=== PATIENT | male | born 1995 | race Caucasian/White ===

== ENCOUNTER 2016-08-08 08:43 | Emergency (ER) | payer OTHER ==
[~2016-08-08] VITALS: Ht 180.3 cm; Wt 68.2 kg
[~2016-08-08 08:43] MED LIST: BUSP10TA23 PO
[2016-08-08] MEDS ORDERED: LOPERAMIDE HCL 2 MG CAPSULE PO ONE (09:15)
[2016-08-08] MEDS ORDERED: KETOROLAC TROMETHAMINE 30 MG/ML VIAL IVP ONE (09:15)
[2016-08-08] MEDS ORDERED: BARIUM SULFATE 0.1% SUSPENSION 450 ML BOTTLE PO ONE (09:15)
[2016-08-08] MEDS ORDERED: SODIUM CHLORIDE 0.9% 1,000 ML IV ONE (09:15)
[2016-08-08] MEDS ORDERED: ONDANSETRON HCL 4 MG TABLET PO ONE (09:15)
[2016-08-08] MEDS ORDERED: SODIUM CHLORIDE 0.9% 100 ML ONE (09:30)
[2016-08-08] MEDS ORDERED: IOVERSOL 350 MG/ML 100 ML VIAL ONE (09:30)
[2016-08-08] MEDS ORDERED: ONDANSETRON HCL 4 MG/2 ML VIAL IVP ONE (09:30)
[2016-08-08 09:43] LABS: BASOPHILS % (AUTO) 0.2 % (0.0-2.0); EOSINOPHILS % (AUTO) 0.7 % (1.0-6.0); HEMATOCRIT 46.1 % (41-53); HEMOGLOBIN 15.1 g/dL (13.5-17.5); LYMPHOCYTES # (AUTO) 0.7 K/uL (1.0-4.8); LYMPHOCYTES % (AUTO) 8.5 % (22.0-44.0); MEAN CORPUSCULAR HEMOGLOBIN 29.6 pg (26.0-34.0); MEAN CORPUSCULAR HGB CONC 32.9 G/dL (31.0-37.0); MEAN CORPUSCULAR VOLUME 90 fL (80-100); MONOCYTES # (AUTO) 0.4 K/uL (0.1-1.0); MONOCYTES % (AUTO) 4.6 % (2.0-9.0); NEUTROPHILS # (AUTO) 7.4 K/uL (1.8-7.7); PLATELET COUNT (AUTO) 245 K/uL (150-450); RED BLOOD CELL COUNT(AUTO) 5.11 MIL/uL (4.50-5.90); RED CELL DISTRIBUTION WIDTH 12.8 % (11.5-14.5); WHITE BLOOD COUNT (AUTO) 8.6 K/uL (4.5-11.0)
[2016-08-08 09:50] LABS: RBC MORPHOLOGY COMMENT NORMAL RBC MORPH
[2016-08-08 09:55] LABS: ANION GAP 13 mmol/L (8-16); CALCIUM, TOTAL 9.4 mg/dL (8.8-10.5); CARBON DIOXIDE 25 mmol/L (22-29); CHLORIDE 101 mmol/L (98-107); CREATININE 0.95 mg/dL (0.60-1.30); GLOMERULAR FILTR. RATE CALC > 60 mL/min (>60); POTASSIUM 3.6 mmol/L (3.5-5.1); SODIUM SERUM 139 mmol/L (136-145); UREA NITROGEN, BLOOD 16 mg/dL (7-18)
[2016-08-08 10:01] LABS: ALANINE AMINOTRANSFERASE 33 U/L (12-78); ALBUMIN 4.6 g/dL (3.4-5.0); ASPARTATE AMINOTRANSFERASE 27 U/L (15-37); BILIRUBIN,TOTAL 1.4 mg/dL (0.1-1.0); TOTAL PROTEIN, SERUM 8.3 g/dL (6.4-8.2)
[2016-08-08 10:04] LABS: APPEARANCE,URINE CLEAR (CLEAR); GLUCOSE, URINE (UA) NEGATIVE (NEGATIVE); KETONES,URINE >=80 mg/dL (NEGATIVE); LEUKOCYTE ESTERASE ,URINE NEGATIVE (NEGATIVE); OCCULT BLOOD,URINE NEGATIVE (NEGATIVE); PH,URINE 5.5 (5.0-8.0); PROTEIN,URINE TRACE (NEGATIVE)
[2016-08-08 10:06] LABS: ADD UA MICROSCOPIC NO
[2016-08-08 11:42] VITALS: BP 108/59
== END 2016-08-08 13:06 | disposition home or self-care (01) ==
LOC: EMS 08:45
DX: E86.0 Dehydration (principal); F17.210 Nicotine dependence, cigarettes, uncomplicated; F12.90 Cannabis use, unspecified, uncomplicated
CPT/HCPCS: 36415; 74177; 80053; 81003; 83690; 85025; 96361; 96374; 96375; 99285; J1885; J2405; J7030; J7050; Q0162; Q9967; Z7610

== ENCOUNTER 2018-11-13 13:28 | Emergency (ER) | payer OTHER ==
[~2018-11-13] VITALS: Ht 180.3 cm; Wt 81.8 kg
[2018-11-13] MEDS ORDERED: LOPERAMIDE HCL 2 MG CAPSULE PO ONE (14:15)
[2018-11-13] MEDS ORDERED: SODIUM CHLORIDE 0.9% 1,000 ML IV ONE (14:15)
[2018-11-13 15:51] LABS: ANION GAP 8 mmol/L (8-16); CALCIUM, TOTAL 9.8 mg/dL (8.8-10.5); CARBON DIOXIDE 27 mmol/L (22-29); CHLORIDE 103 mmol/L (98-107); CREATININE 0.95 mg/dL (0.60-1.30); GLOMERULAR FILTR. RATE CALC > 60 mL/min (>60); GLUCOSE,RANDOM 85 mg/dL (70-110); POTASSIUM 4.2 mmol/L (3.5-5.1); SODIUM SERUM 138 mmol/L (136-145); UREA NITROGEN, BLOOD 18 mg/dL (7-18)
[2018-11-13 15:57] LABS: ALANINE AMINOTRANSFERASE 66 U/L (12-78); ALBUMIN 4.4 g/dL (3.4-5.0); ALKALINE PHOSPHATASE 82 U/L (46-116); ASPARTATE AMINOTRANSFERASE 50 U/L (15-37); BILIRUBIN,TOTAL 0.5 mg/dL (0.1-1.0); LIPASE 101 U/L (73-393); TOTAL PROTEIN, SERUM 8.3 g/dL (6.4-8.2)
[2018-11-13 15:59] LABS: HEMATOCRIT 43.5 % (41-53); HEMOGLOBIN 14.4 g/dL (13.5-17.5); MEAN CORPUSCULAR HEMOGLOBIN 29.6 pg (26.0-34.0); MEAN CORPUSCULAR HGB CONC 33.2 G/dL (31.0-37.0); MEAN CORPUSCULAR VOLUME 89 fL (80-100); PLATELET COUNT (AUTO) 276 K/uL (150-450); RED BLOOD CELL COUNT(AUTO) 4.88 MIL/uL (4.50-5.90); RED CELL DISTRIBUTION WIDTH 13.3 % (11.5-14.5)
[2018-11-13 16:40] LABS: BAND NEUTROPHILS % (MANUAL) 11 % (0-5); LYMPHOCYTES % (MANUAL) 13 % (22-44); MONOCYTES % (MANUAL) 8 % (2-9); SEGMENTED NEUTROPHILS % 68 % (40-70)
[2018-11-13 17:08] VITALS: BP 108/52
== END 2018-11-13 17:12 | disposition home or self-care (01) ==
LOC: EDUNIT# 13:28 → EMS 13:32
DX: R19.7 Diarrhea, unspecified (principal); R10.84 Generalized abdominal pain; F41.9 Anxiety disorder, unspecified
CPT/HCPCS: 36415; 80053; 83690; 85025; 96360; 96361; 99283; J7030

== ENCOUNTER 2019-11-30 21:12 | Emergency (ER) | payer OTHER ==
[~2019-11-30] VITALS: Ht 180.3 cm; Wt 86.4 kg
[2019-11-30 23:09] LABS: BASOPHILS % (AUTO) 0.9 % (0.0-2.0); EOSINOPHILS % (AUTO) 0.6 % (1.0-6.0); HEMATOCRIT 41.9 % (41-53); HEMOGLOBIN 14.3 g/dL (13.5-17.5); LYMPHOCYTES # (AUTO) 2.1 K/uL (1.0-4.8); LYMPHOCYTES % (AUTO) 33.1 % (22.0-44.0); MEAN CORPUSCULAR HGB CONC 34.2 G/dL (31.0-37.0); MEAN CORPUSCULAR VOLUME 88 fL (80-100); MONOCYTES # (AUTO) 0.5 K/uL (0.1-1.0); MONOCYTES % (AUTO) 7.7 % (2.0-9.0); NEUTROPHILS # (AUTO) 3.6 K/uL (1.8-7.7); NEUTROPHILS % (AUTO) 57.7 % (40.0-70.0); PLATELET COUNT (AUTO) 274 K/uL (150-450); RED BLOOD CELL COUNT(AUTO) 4.77 MIL/uL (4.50-5.90); RED CELL DISTRIBUTION WIDTH 12.9 % (11.5-14.5)
[2019-11-30 23:11] LABS: APPEARANCE,URINE CLEAR (CLEAR); BILIRUBIN,URINE NEGATIVE (NEGATIVE); GLUCOSE, URINE (UA) NEGATIVE (NEGATIVE); KETONES,URINE NEGATIVE (NEGATIVE); LEUKOCYTE ESTERASE ,URINE NEGATIVE (NEGATIVE); NITRATE,URINE NEGATIVE (NEGATIVE); OCCULT BLOOD,URINE NEGATIVE (NEGATIVE); PH,URINE 6.5 (5.0-8.0); PROTEIN,URINE NEGATIVE (NEGATIVE)
[2019-11-30 23:20] VITALS: BP 116/64
[2019-11-30 23:30] LABS: ALANINE AMINOTRANSFERASE 138 U/L (12-78); ALBUMIN 4.4 g/dL (3.4-5.0); ALKALINE PHOSPHATASE 53 U/L (46-116); ANION GAP 8 mmol/L (8-16); ASPARTATE AMINOTRANSFERASE 48 U/L (15-37); BILIRUBIN,TOTAL 0.8 mg/dL (0.1-1.0); CALCIUM, TOTAL 9.5 mg/dL (8.8-10.5); CARBON DIOXIDE 28 mmol/L (22-29); CHLORIDE 101 mmol/L (98-107); CREATININE 1.04 mg/dL (0.60-1.30); GLOMERULAR FILTR. RATE CALC > 60 mL/min (>60); GLUCOSE,RANDOM 93 mg/dL (70-110); LIPASE 82 U/L (73-393); POTASSIUM 3.6 mmol/L (3.5-5.1); SODIUM SERUM 137 mmol/L (136-145); TOTAL PROTEIN, SERUM 7.9 g/dL (6.4-8.2); UREA NITROGEN, BLOOD 15 mg/dL (7-18)
== END 2019-12-01 00:11 | disposition home or self-care (01) ==
LOC: EMS 21:12
DX: K92.2 Gastrointestinal hemorrhage, unspecified (principal); F41.9 Anxiety disorder, unspecified; F12.90 Cannabis use, unspecified, uncomplicated
CPT/HCPCS: 82271

== ENCOUNTER 2020-02-16 00:39 | Emergency (ER) | payer OTHER ==
[~2020-02-16] VITALS: Ht 177.8 cm; Wt 86.4 kg
[2020-02-16 02:48] VITALS: BP 133/70
== END 2020-02-16 02:58 | disposition home or self-care (01) ==
LOC: EMS 00:40
DX: F41.9 Anxiety disorder, unspecified (principal); F12.90 Cannabis use, unspecified, uncomplicated
CPT/HCPCS: 93005

== ENCOUNTER 2021-09-13 19:58 | Emergency (ER) | payer OTHER ==
[~2021-09-13] VITALS: Ht 180.3 cm; Wt 97.7 kg
[2021-09-13] MEDS ORDERED: SERT-162 PO (20:16)
[2021-09-13 21:09] VITALS: BP 132/72
== END 2021-09-13 21:41 | disposition home or self-care (01) ==
LOC: EMS 21:01
DX: H61.21 Impacted cerumen, right ear (principal); R11.2 Nausea with vomiting, unspecified; T78.8XXA Other adverse effects, not elsewhere classified, initial encounter; F41.9 Anxiety disorder, unspecified; Y92.89 Other specified places as the place of occurrence of the external cause
CPT/HCPCS: 99282; Z7502

== ENCOUNTER 2022-02-21 11:07 | Emergency (ER) | payer OTHER ==
[~2022-02-21] VITALS: Ht 180.3 cm; Wt 100.0 kg
[~2022-02-21 11:07] MED LIST changes: -BUSP10TA23 PO; +SERT-162 PO
[2022-02-21] MEDS ORDERED: ACETAMINOPHEN 500 MG TABLET PO ONE (11:30)
[2022-02-21] MEDS ORDERED: KETOROLAC TROMETHAMINE 30 MG/ML VIAL IM ONE (11:30)
[2022-02-21] MEDS ORDERED: LIDOCAINE 5% TRANSDERMAL PATCH TD ONE (11:30)
[2022-02-21 11:41] VITALS: BP 138/78
[2022-02-21] MEDS ORDERED: IBUP-2070 PO (12:24)
[2022-02-21] MEDS ORDERED: LIDO700A15 TP (12:24)
== END 2022-02-21 13:07 | disposition home or self-care (01) ==
LOC: EMS 11:10
DX: S39.012A Strain of muscle, fascia and tendon of lower back, initial encounter (principal); F41.9 Anxiety disorder, unspecified; F12.90 Cannabis use, unspecified, uncomplicated; X50.1XXA Overexertion from prolonged static or awkward postures, initial encounter; Y93.E1 Activity, personal bathing and showering; Y92.89 Other specified places as the place of occurrence of the external cause; Y99.8 Other external cause status
CPT/HCPCS: 99283; 96372; J1885

== ENCOUNTER 2022-09-06 05:40 | Emergency (ER) | payer OTHER ==
[~2022-09-06] VITALS: Ht 180.3 cm; Wt 105.0 kg
[~2022-09-06 05:40] MED LIST changes: +IBUP-1492 PO; +LIDO700A15 TP
[2022-09-06 06:21] LABS: BASOPHILS % (AUTO) 0.6 % (0.0-2.0); HEMATOCRIT 43.9 % (41-53); HEMOGLOBIN 15.1 g/dL (13.5-17.5); LYMPHOCYTES # (AUTO) 1.9 K/uL (1.0-4.8); LYMPHOCYTES % (AUTO) 24.4 % (22.0-44.0); MEAN CORPUSCULAR HEMOGLOBIN 30.3 pg (26.0-34.0); MEAN CORPUSCULAR HGB CONC 34.4 G/dL (31.0-37.0); MEAN CORPUSCULAR VOLUME 88 fL (80-100); MONOCYTES # (AUTO) 0.6 K/uL (0.1-1.0); MONOCYTES % (AUTO) 7.6 % (2.0-9.0); NEUTROPHILS # (AUTO) 5.1 K/uL (1.8-7.7); NEUTROPHILS % (AUTO) 66.4 % (40.0-70.0); PLATELET COUNT (AUTO) 315 K/uL (150-450); RED BLOOD CELL COUNT(AUTO) 4.99 MIL/uL (4.50-5.90); RED CELL DISTRIBUTION WIDTH 12.9 % (11.5-14.5)
[2022-09-06 06:31] LABS: ANION GAP 11 mmol/L (8-16); CALCIUM, TOTAL 9.6 mg/dL (8.8-10.5); CARBON DIOXIDE 26 mmol/L (22-29); CHLORIDE 102 mmol/L (98-107); CREATININE 0.84 mg/dL (0.60-1.30); GLOMERULAR FILTR. RATE CALC > 60 mL/min (>60); GLUCOSE,RANDOM 105 mg/dL (70-110); SODIUM SERUM 139 mmol/L (136-145)
[2022-09-06 06:37] LABS: ALANINE AMINOTRANSFERASE 151 U/L (12-78); ALBUMIN 4.3 g/dL (3.4-5.0); ALKALINE PHOSPHATASE 68 U/L (46-116); ASPARTATE AMINOTRANSFERASE 54 U/L (15-37); BILIRUBIN,TOTAL 0.5 mg/dL (0.1-1.0); TOTAL PROTEIN, SERUM 8.4 g/dL (6.4-8.2)
[2022-09-06 07:29] LABS: AMPHET/METH SCREEN,URINE NEGATIVE (NEGATIVE); BARBITURATE SCREEN, URINE NEGATIVE (NEGATIVE); BENZODIAZEPINES SCREEN,URINE NEGATIVE (NEGATIVE); CANNABINOID SCREEN,URINE POSITIVE (NEGATIVE); COCAINE SCREEN,URINE NEGATIVE (NEGATIVE); METHADONE SCREEN, URINE NEGATIVE (NEGATIVE); OPIATE SCREEN,URINE NEGATIVE (NEGATIVE); PHENCYCLIDINE SCREEN,URINE NEGATIVE (NEGATIVE)
[2022-09-06 10:09] VITALS: BP 128/72
== END 2022-09-06 10:54 | disposition home or self-care (01) ==
LOC: EMS 05:42
DX: F41.9 Anxiety disorder, unspecified (principal); F12.90 Cannabis use, unspecified, uncomplicated
CPT/HCPCS: 99283; 80053; 85025; 36415; 80307 ×2; G0480

== ENCOUNTER → 2023-05-01 | Emergency (ER) | payer OTHER ==
[~2023-05-01] VITALS: Ht 180.3 cm; Wt 104.0 kg
[2023-05-01 20:39] LABS: BASOPHILS % (AUTO) 1.2 % (0.0-2.0); HEMOGLOBIN 15.9 g/dL (13.5-17.5); LYMPHOCYTES # (AUTO) 2.9 K/uL (1.0-4.8); LYMPHOCYTES % (AUTO) 31.9 % (22.0-44.0); MEAN CORPUSCULAR HEMOGLOBIN 29.8 pg (26.0-34.0); MEAN CORPUSCULAR HGB CONC 34.5 G/dL (31.0-37.0); MEAN CORPUSCULAR VOLUME 86 fL (80-100); MONOCYTES # (AUTO) 0.6 K/uL (0.1-1.0); NEUTROPHILS # (AUTO) 5.4 K/uL (1.8-7.7); NEUTROPHILS % (AUTO) 58.9 % (40.0-70.0); PLATELET COUNT (AUTO) 379 K/uL (150-450); RED BLOOD CELL COUNT(AUTO) 5.32 MIL/uL (4.50-5.90); RED CELL DISTRIBUTION WIDTH 13.2 % (11.5-14.5); WHITE BLOOD COUNT (AUTO) 9.1 K/uL (4.5-11.0)
[2023-05-01 21:03] LABS: ANION GAP 13 mmol/L (8-16); CARBON DIOXIDE 25 mmol/L (22-29); CHLORIDE 100 mmol/L (98-107); CREATININE 0.98 mg/dL (0.60-1.30); GLOMERULAR FILTR. RATE CALC > 60 mL/min (>60); GLUCOSE,RANDOM 99 mg/dL (70-110); SODIUM SERUM 138 mmol/L (136-145); UREA NITROGEN, BLOOD 18 mg/dL (7-18)
[2023-05-01 21:04] LABS: PROTHROMBIN TIME 10.8 SEC (9.4-11.6)
[2023-05-01 21:07] LABS: ALANINE AMINOTRANSFERASE 205 U/L (12-78); ALBUMIN 4.8 g/dL (3.4-5.0); ALKALINE PHOSPHATASE 67 U/L (46-116); ASPARTATE AMINOTRANSFERASE 83 U/L (15-37); BILIRUBIN,TOTAL 0.9 mg/dL (0.1-1.0); LIPASE 35 U/L (16-77); TOTAL PROTEIN, SERUM 8.9 g/dL (6.4-8.2)
[2023-05-01 22:40] VITALS: BP 106/83; PULSE 88; RESP 18; TEMP 98.5
== END | disposition still patient (30) ==
LOC: EMS 20:11
DX: K62.5 Hemorrhage of anus and rectum (principal); F41.9 Anxiety disorder, unspecified
CPT/HCPCS: 80053; 83690; 85025; 85610; 85730; 86850; 86900; 86901; 99283

== ENCOUNTER 2025-01-16 07:53 | Emergency (ER) | payer SELFPAY ==
[~2025-01-16] VITALS: Ht 180.3 cm; Wt 85.9 kg
[~2025-01-16 07:53] MED LIST changes: +LIDO-57 TP; -LIDO700A15 TP
[2025-01-16 07:54] VITALS: TEMP 97.9
[2025-01-16 08:18] LABS: PLATELET COUNT (AUTO) 246 K/uL (150-450); RED BLOOD CELL COUNT(AUTO) 4.94 MIL/uL (4.50-5.90); RED CELL DISTRIBUTION WIDTH 12.6 % (11.5-14.5); WHITE BLOOD COUNT (AUTO) 5.8 K/uL (4.5-11.0)
[2025-01-16 08:28] LABS: CALCIUM, TOTAL 9.2 mg/dL (8.8-10.5); CREATININE 0.93 mg/dL (0.60-1.30); GLOMERULAR FILTR. RATE CALC > 60 mL/min (>60); GLUCOSE,RANDOM 106 mg/dL (70-110); SODIUM SERUM 140 mmol/L (136-145); UREA NITROGEN, BLOOD 16 mg/dL (7-18)
[2025-01-16 08:37] LABS: TROPONIN I-HIGH SENSITIVITY 24 ng/L (<76)
[2025-01-16] MEDS: LORazepam 2 MG/ML VIAL IM ONE (09:19)
[2025-01-16] MEDS: ASPIRIN 325 MG TABLET PO ONE (09:19)
[2025-01-16 10:50] LABS: TROPONIN I-HIGH SENSITIVITY 21 ng/L (<76)
[2025-01-16 11:45] VITALS: BP 126/73; PULSE 87; RESP 18; O2SAT 99
[2025-01-16] MEDS ORDERED: LORA1TAB25 PO (11:50)
== END 2025-01-16 12:04 | disposition home or self-care (01) ==
LOC: EMS 08:04
DX: F41.9 Anxiety disorder, unspecified (principal); R07.89 Other chest pain; I51.7 Cardiomegaly; Z79.899 Other long term (current) drug therapy
CPT/HCPCS: 99285; 93306; 71045; 80048; 84484; 85025; 36415; 93005; 96372; J2060

== ENCOUNTER 2025-02-20 14:08 | Emergency (ER) | payer MEDICAID ==
[~2025-02-20] VITALS: Ht 180.3 cm; Wt 86.4 kg
[~2025-02-20 14:08] MED LIST changes: +LORA1TAB25 PO
[2025-02-20 14:12] VITALS: BP 117/68; PULSE 84; RESP 18; TEMP 98.1; O2SAT 97
[2025-02-20] MEDS ORDERED: PARO-38 PO (15:44)
[2025-02-20] MEDS ORDERED: LORA0.5T20 PO (15:44)
== END 2025-02-20 16:05 | disposition home or self-care (01) ==
LOC: EMS 14:08
DX: F41.1 Generalized anxiety disorder (principal); Z79.899 Other long term (current) drug therapy
CPT/HCPCS: 99283; Z7502

== ENCOUNTER 2025-03-22 17:50 | Emergency (ER) | payer MEDICAID ==
[~2025-03-22] VITALS: Ht 180.3 cm; Wt 86.0 kg
[~2025-03-22 17:50] MED LIST changes: +LORA0.5T20 PO; +PARO-38 PO
[2025-03-22 18:24] VITALS: BP 112/69; PULSE 97; RESP 16; TEMP 97.9; O2SAT 99
== END 2025-03-22 19:33 | disposition home or self-care (01) ==
LOC: EMS 17:54
DX: F41.9 Anxiety disorder, unspecified (principal); Z79.899 Other long term (current) drug therapy; Z76.0 Encounter for issue of repeat prescription
CPT/HCPCS: 99282; Z7502

== ENCOUNTER 2025-03-30 22:08 | Emergency (ER) | payer MEDICAID ==
[~2025-03-30] VITALS: Ht 180.3 cm; Wt 86.3 kg
[2025-03-30 22:38] VITALS: BP 118/72; PULSE 80; RESP 18; TEMP 98.7; O2SAT 98
[2025-03-31] MEDS ORDERED: LORA0.5T20 PO (01:18)
== END 2025-03-31 01:48 | disposition home or self-care (01) ==
LOC: EMS 22:19
DX: F41.9 Anxiety disorder, unspecified (principal); F17.210 Nicotine dependence, cigarettes, uncomplicated; F12.90 Cannabis use, unspecified, uncomplicated; Z76.0 Encounter for issue of repeat prescription; Z79.899 Other long term (current) drug therapy
CPT/HCPCS: 99283